=== PATIENT | female | born 1980 | race Caucasian/White ===

== ENCOUNTER 2023-07-07 04:25 | Inpatient (IN) | payer BC, OTHER ==
[2023-07-07] MEDS ORDERED: Carboprost Tromethamine 250 MCG/1 ML Amp IM PRN (05:11)
[2023-07-07] MEDS ORDERED: Tranexamic Acid 1,000 MG in Sodium Chloride 0.9% 100 ML IV PRN (05:11)
[2023-07-07] MEDS ORDERED: Misoprostol 400 MCG (4 X 100 MCG TAB) RECTAL PRN (05:11)
[2023-07-07] MEDS ORDERED: Sodium Chloride 0.9% 10 ML Syringe FLUSH PRN (05:11)
[2023-07-07] MEDS ORDERED: Methylergonovine 0.2 MG/1 ML Amp IM PRN (05:11)
[2023-07-07] MEDS ORDERED: Ondansetron 4 MG/2 ML SDV IVPUSH PRN (05:11)
[2023-07-07] MEDS ORDERED: Acetaminophen 325 MG Tab PO PRN ×2 (05:11→16:58)
[2023-07-07 05:20] LABS: HEMATOCRIT 34.8 % (37.0-47.0); HEMOGLOBIN 11.1 g/dL (12.0-16.0); MEAN CORPUSCULAR HEMOGLOBIN 27.1 pg (27.0-34.0); MEAN CORPUSCULAR HGB CONC 31.9 g/dL (33.0-35.0); MEAN CORPUSCULAR VOLUME 84.9 fL (80-100); RED BLOOD CELL COUNT 4.1 10^6/uL (4.2-5.4); WHITE BLOOD CELL COUNT,WBC 12.7 10^3/uL (5.0-10.0)
[2023-07-07] MEDS: fentaNYL 100 MCG/2 ML SDV IVPUSH ONE (06:09)
[2023-07-07] MEDS: fentaNYL 100 MCG/2 ML SDV IVPUSH PRN (07:19)
[2023-07-07] MEDS: Lactated Ringers 1,000 ML IV SCH (07:21)
[2023-07-07] MEDS ORDERED: fentaNYL 100 MCG/2 ML SDV ONE (09:43)
[2023-07-07] MEDS ORDERED: Bupivacaine 0.25% 10 ML SDV ONE (09:43)
[2023-07-07] MEDS ORDERED: Phenylephrine HCl In 0.9% NaCl 1 MG/10 ML Syringe IVPUSH PRN (10:09)
[2023-07-07] MEDS ORDERED: ePHEDrine 50 MG/ML SDV IVPUSH PRN (10:09)
[2023-07-07] MEDS ORDERED: Ropivacaine 200 MG in Premix Bag 1 BAG EPIDUR SCH (10:15)
[2023-07-07] MEDS: Oxytocin/Normal Saline 30 UNIT/500 ML BAG IV SCH (11:45)
[2023-07-07] MEDS: Lactated Ringers 1,000 ML IV ONE (11:45)
[2023-07-07] MEDS ORDERED: Oxytocin 10 Units/1 ML SDV IM PRN (16:58)
[2023-07-07] MEDS ORDERED: Witch Hazel Medicated Pads 100/Jar TOP PRN (16:58)
[2023-07-07] MEDS ORDERED: Simethicone 80 MG Tab.Chew PO PRN (16:58)
[2023-07-07] MEDS: Ibuprofen 800 MG Tab PO PRN (17:52)
[2023-07-07] MEDS: Docusate Sodium 100 MG Cap PO PRN (17:52)
[2023-07-07] MEDS: Benzocaine/Menthol 20%-0.5% Spray 78 GM Cannister TOP PRN (17:53)
[2023-07-07] MEDS: Lidocaine 1% 30 ML SDV INJECT ONE (17:57)
[2023-07-08] MEDS: Ferrous Sulfate 325 MG Tab PO SCH (07:38)
[2023-07-08] MEDS: Prenatal Multivitamin with Calcium/Folic Acid/Iron Tab PO SCH (07:38)
[2023-07-08 17:51] LABS: HEMATOCRIT 31.7 % (37.0-47.0); HEMOGLOBIN 9.8 g/dL (12.0-16.0); MEAN CORPUSCULAR HEMOGLOBIN 26.9 pg (27.0-34.0); MEAN CORPUSCULAR HGB CONC 30.9 g/dL (33.0-35.0); MEAN CORPUSCULAR VOLUME 87.1 fL (80-100); RED BLOOD CELL COUNT 3.64 10^6/uL (4.2-5.4)
[2023-07-09] MEDS ORDERED: fentaNYL 100 MCG/2 ML SDV EPIDUR ONE (11:59)
[2023-07-09] MEDS ORDERED: Bupivacaine 0.25% 10 ML SDV NERVRT ONE (11:59)
[2023-07-09] MEDS ORDERED: Ropivacaine 100 ML EPIDUR ONE (11:59)
== END 2023-07-09 12:00 | disposition home or self-care (01) | DRG 560 ==
LOC: DL.OBCHECK 04:25 → DL.OB 05:19 → OBSVTOIN 17:07 → DL.MS 07-08 17:02
PROVIDERS: ADMIT Family Medicine; ATTEND Family Medicine
PROC: 10E0XZZ Delivery of Products of Conception, External Approach (ICD-10-PCS; principal; 2023-07-07)
PROC: 3E0R3BZ Introduction of Anesthetic Agent into Spinal Canal, Percutaneous Approach (ICD-10-PCS; 2023-07-07)
PROC: 00HU33Z Insertion of Infusion Device into Spinal Canal, Percutaneous Approach (ICD-10-PCS; 2023-07-07)
DX: O42.013 Preterm premature rupture of membranes, onset of labor within 24 hours of rupture, third trimester (principal); O60.10X0 Preterm labor with preterm delivery, unspecified trimester, not applicable or unspecified; D62 Acute posthemorrhagic anemia; O99.02 Anemia complicating childbirth; O99.214 Obesity complicating childbirth; O99.344 Other mental disorders complicating childbirth; F32.A Depression, unspecified; Z3A.36 36 weeks gestation of pregnancy; Z37.0 Single live birth
CPT/HCPCS: 01967; 36415; 51702; 59409; 85027; A9270-GY; J2590; J2795; J3010; J3490; J7120